=== PATIENT | female | born 1965 | race Caucasian/White ===

== ENCOUNTER 2018-11-20 08:32 | Day surgery (SDC) | payer BC ==
[2018-11-20] MEDS ORDERED: MIDAZOLAM 1 MG/ML 2 ML INJ (09:37)
[2018-11-20] MEDS ORDERED: PROPOFOL 20 ML (09:37)
[2018-11-20] MEDS ORDERED: LIDOCAINE 2% (SDV) 5 ML INJ (09:37)
[2018-11-20] MEDS ORDERED: ETOMIDATE 20 MG INJ (09:38)
[2018-11-20] MEDS ORDERED: FENTAnyl 50 MCG/ML VIAL (09:38)
[2018-11-20] MEDS ORDERED: LIDOCAINE 4% SOLUTION 50 ML BTL (09:38)
== END 2018-11-20 11:40 | disposition home or self-care (01) ==
LOC: GIL 08:32
DX: Z12.11 Encounter for screening for malignant neoplasm of colon (principal); K64.8 Other hemorrhoids; K31.9 Disease of stomach and duodenum, unspecified; D12.6 Benign neoplasm of colon, unspecified; K21.9 Gastro-esophageal reflux disease without esophagitis; E11.9 Type 2 diabetes mellitus without complications; E03.9 Hypothyroidism, unspecified; I10 Essential (primary) hypertension
CPT/HCPCS: 43239; 82962; 88305; 88312